=== PATIENT | male | born 1995 | race African-American/Black ===

== ENCOUNTER 2016-11-03 09:09 | Emergency (ER) | payer MEDICAID, OTHER ==
[~2016-11-03] VITALS: Ht 172.7 cm; Wt 78.0 kg
[2016-11-03 10:01] VITALS: BP 152/99
== END 2016-11-03 10:45 | disposition home or self-care (01) ==
LOC: ER 10:00
DX: R42 Dizziness and giddiness (principal); R51 Headache
CPT/HCPCS: 99281

== ENCOUNTER 2016-12-15 11:41 | Emergency (ER) | payer OTHER ==
[~2016-12-15] VITALS: Ht 172.7 cm; Wt 78.0 kg
[2016-12-15] MEDS ORDERED: AZITHROMYCIN 500 MG TABLET PO ONE (13:00)
[2016-12-15] MEDS ORDERED: CEFTRIAXONE SODIUM 250 MG/VIAL IM ONE (13:00)
[2016-12-15] MEDS ORDERED: LIDOCAINE HCL 1% 20ML VIAL (Pyxis) INJ MC ONE (13:00)
[2016-12-15 13:21] LABS: CLARITY URINE CLEAR (CLEAR); COLOR URINE YELLOW (YELLOW); GLUCOSE URINE NEGATIVE (NEGATIVE); KETONES URINE NEGATIVE (NEGATIVE); LEUKOCYTE ESTERASE URINE 2+ (NEGATIVE); NITRITE URINE NEGATIVE (NEGATIVE); OCCULT BLOOD URINE NEGATIVE (NEGATIVE); PROTEIN URINE NEGATIVE (NEGATIVE); SPECIFIC GRAVITY URINE 1.017 (1.005-1.030)
[2016-12-15 13:30] LABS: MUCUS URINE TRACE /lpf (NONE/TRACE); SQUAMOUS EPITHELIAL CELL URINE NONE SEEN /lpf (RARE/1+)
[2016-12-15 13:31] LABS: BACTERIA URINE TRACE; YEAST URINE 2+
[2016-12-15 13:32] LABS: RBC URINE 0-2 /hpf (0-2); WBC URINE 0-2 /hpf (0-2)
[2016-12-15 14:25] VITALS: BP 123/85
[2016-12-17 17:07] LABS: CHLAMYDIA TRACHOMATIS NAA Negative (Negative); NEISSERIA GONORRHOEAE NAA Positive (Negative)
== END 2016-12-15 14:26 | disposition home or self-care (01) ==
LOC: ER 12:55
DX: A74.9 Chlamydial infection, unspecified (principal); N39.0 Urinary tract infection, site not specified; F17.200 Nicotine dependence, unspecified, uncomplicated; F12.10 Cannabis abuse, uncomplicated
CPT/HCPCS: 81001; 87086; 87491; 87591; 96372; 99284; J0696; J3490; Z7610